=== PATIENT | female | born 1985 | race African-American/Black ===

== ENCOUNTER 2016-07-02 11:11 | Day surgery (SDC) | payer BC, OTHER ==
[2016-07-01 11:28] VITALS: BMI 34.0
[~2016-07-02] VITALS: Ht 165.1 cm; Wt 92.7 kg
[~2016-07-02 11:11] MED LIST: ATROPINE SULFATE 0.1 MG/ML 5ML SYR IV PRN; EpHEDrine SULFATE INJ 50 MG/ML AMP IV PRN; HYDROmorphone INJ 1 MG/ML SYR IV PRN; LABETALOL HCL IV 5 MG/ML 20ML IV PRN; LACTATED RINGER'S 1000ML 1,000 ML IV SCH; MEPERIDINE HCL 25 MG/ML CARP IV PRN; ONDANSETRON INJ 2 MG/ML 2 ML VIAL IV PRN
[2016-07-02 11:30] VITALS: BP 121/64; PULSE 82; TEMP 37.6; O2SAT 100; Ht 165.1 cm; Wt 92.7 kg
[2016-07-02] MEDS ORDERED: PRENTAB26 PO (11:42)
[2016-07-02 12:12] LABS: HEMATOCRIT 39.8 % (37-47); MEAN CELL VOLUME 80.1 fL (80-100); MEAN CORPUSCULAR HEMOGLOBIN 27.6 pg (25-34); MEAN CORPUSCULAR HGB CONC 34.4 g/dl (32-36); RED BLOOD COUNT 4.97 M/uL (4.2-5.4); WHITE BLOOD COUNT 6.57 K/uL (4.8-10.8)
[2016-07-02 12:14] LABS: PLATELET COUNT 74 K/uL (130-400)
[2016-07-02 12:15] LABS: BASO % 0.5 %; BASO ABS # 0.03 K/uL (0-0.2); COMPLETE YES; EOS % 1.7 %; IG% 0.2 %; LYMPH % 38.7 %; LYMPH ABS # 2.54 K/uL (1.2-3.4); MONO % 5.6 %; NEUT % 53.3 %; PLT ESTIMATE DECREASED
[2016-07-02] MEDS ORDERED: FENTANYL CITRATE INJ 50 MCG/1 ML 2 ML VIAL ONE ×2 (12:22→14:05)
[2016-07-02] MEDS ORDERED: MIDAZOLAM HCL 1 MG/ML 2ML VIAL ONE (12:22)
[2016-07-02] MEDS ORDERED: PROPOFOL IV EMULSION 10 MG/ML 20 ML VIAL IV ONE (12:22)
[2016-07-02] MEDS ORDERED: LIDOCAINE HCL 2% 2 ML VIAL (20MG/ML) ONE (12:22)
--- NOTE | 2016-07-02 13:22 | History & Physical Bridge Note ---
H&P Re-Evaluation Bridge Note: I have examined the patient, reviewed the History & Physical and in the interval since the performance of the History & Physical I have noted the following changes of clinical significance: No changes noted
[2016-07-02] MEDS: FENTANYL CITRATE INJ 50 MCG/1 ML 2 ML VIAL IV PRN ×2 (13:27→14:32)
[2016-07-02] MEDS ORDERED: ONDANSETRON INJ 2 MG/ML 2 ML VIAL ONE (13:59)
[2016-07-02] MEDS ORDERED: DEXAMETHASONE SOD INJ 4 MG/ML VIAL ONE (13:59)
[2016-07-02] MEDS ORDERED: KETOROLAC TROMETHAMINE 30 MG/ML VIAL ONE (13:59)
[2016-07-02] MEDS ORDERED: CLINDAMYCIN PHOS 150 MG/ML 2 ML VIAL ONE (13:59)
[2016-07-02] MEDS ORDERED: OXYC-57 PO (14:13)
[2016-07-02] MEDS ORDERED: IBUP600T44 PO (14:13)
--- NOTE | 2016-07-02 14:15 | Discharge Instructions ---
Discharge Instructions Visit Reason for Visit: Missed Discharge Discharge Diagnosis / Problem: Dilation and evacuation, missed Discharge Goals Goal(s): Decrease discomfort Activity Recommendations Activity Limitations: per Instructions/Follow-up section Anesthesia . Post Anesthesia Instructions: If you have had General Anesthesia or IV Sedation: * Do not drive today. * Resume driving when surgeon permits. * Do not make important decisions or sign legal documents today. * Call surgeon for: 1. Temperature elevations greater than 101 degrees F. 2. Uncontrollable pain. 3. Excessive bleeding. 4. Persistent nausea and vomiting. 5. Medication intolerance (nausea, vomiting or rash). * For nausea and vomiting use only clear liquids such as: tea, soda, bouillon until nausea subsides, then gradually increase diet as tolerated. * If you have any concerns or questions, call your surgeon's office. If physician is unavailable and it is an emergency, call 911 or go to the nearest emergency room. . Instructions / Follow-Up Instructions / Follow-Up ACTIVITY RECOMMENDATIONS: * Avoid tampons, douching, hot tubs, pools, and intercourse until bleeding has stopped. * May shower as usual. * No strenuous activity for 24-48 hours. After 24-48 hours, you may do anything you feel like doing (driving and sports are okay). SPECIAL CARE INSTRUCTIONS: Special Diet: * Mild nausea may occur in the immediate post-operative period. * Take clear liquids such as tea, cola or bouillon until all nausea has subsided; you may then resume your normal diet. Special Care: * Light bleeding and vaginal spotting can last from a few days to 3-4 weeks. Call your doctor if bleeding becomes heavier than the heaviest part of your period. * Check your temperature twice a day for one week. If it goes above 100.4 degrees Fahrenheit (38.0 Celsius), notify your doctor. * Call your doctor's office for an appointment after your surgery if not already scheduled FOLLOW-UP VISIT: Call your doctor's office for an appointment after your surgery. Diet Recommendations Recommended Home Diet: no limitations, resume previous diet Pending Studies Studies pending at discharge: no Medical Emergencies . Who to Call and When: Medical Emergencies: If at any time you feel your situation is an emergency, please call 911 immediately. . Non-Emergent Contact Non-Emergency issues call your: Primary Care Provider, Electrician Telephone Call Non-Emergent contact if: you have a fever . . "Provider Documentation" section prepared by Bala Nolan. [facility] Monitoring Program Search Results: patient reviewed within database, no issues identified
--- NOTE | 2016-07-02 14:19 | [facility] Post Operative Brief Note ---
Immediate Operative Summary Operative Date Jul 02, 2016. Pre-Operative Diagnosis First Trimester Missed Post-Operative Diagnosis Same Procedure(s) Performed Suction Dilation and Evacuation Surgeon Dr. Nolan Bilingual Spanish Inbound Sales Surgeon(s) None Estimated Blood Loss 200 Findings On Bimanual exam uterus was at midline and freely mobile. Cervix was dilated with hegar dilators. Using a size 10 suction curette the entire contents of the uterine cavity was evacuated and sent to pathology. Using a large sharp curette a thorough curettage of the cavity was performed obtaining minimal amount of tissue and blood. Excellent hemostasis noted at the completion of the procedure. Patient tolerated the procedure well and was sent to recovery with stable vital signs. Fluids (cc crystalloids) 700 Specimens Products of Conception Drains None Anesthesia General Complication(s) None Disposition Recovery Room / PACU
--- NOTE | 2016-07-02 14:55 | OPERATIVE REPORT ---
DATE OF OPERATION: 07/02/2016 PREOPERATIVE DIAGNOSIS: First trimester missed . POSTOPERATIVE DIAGNOSES: Same. OPERATIVE PROCEDURE: Suction, dilation and evacuation. SURGEON: Dr. Nolan. COMMUNITY SPORTS COORDINATOR: None. ANESTHESIA: General. ESTIMATED BLOOD LOSS: 200 mL. IV FLUIDS: 700 mL crystalloids. URINE OUTPUT: 100 mL clear, yellow urine. SPECIMENS: Products of conception to pathology. DRAINS: None. COMPLICATIONS: None. OPERATIVE FINDINGS: On bimanual exam, uterus was at midline and freely mobile. Cervix was dilated with Hegar dilators using a size 10 suction curette. The entire contents of the uterine cavity was evacuated and sent to pathology. Using a large sharp curette a thorough curettage of the cavity was performed obtaining a minimal amount of tissue and blood. Excellent hemostasis was noted at the completion of the procedure. The patient tolerated the procedure well and was sent to recovery with stable vital signs. OPERATIVE PROCEDURE IN DETAIL: The patient was taken to the operating room where general anesthesia was administered. Once anesthesia was found to be adequate, the patient was placed in the dorsal lithotomy position, was prepped and draped in a manner appropriate for the procedure. A bimanual examination was then performed. A weighted speculum was then placed into the vagina and the anterior lip of the cervix was grasped with a single-tooth tenaculum. The cervix was then dilated using Hannah dilators. A size 10 suction curette was introduced into the uterine cavity and the entire contents were evacuated under suction. The suction curette was then removed and utilizing a large Calhoun curette a thorough curettage of the cavity was performed, noting no further tissue. At this point, the procedure was found to be complete. All instruments were removed from the vagina. Excellent hemostasis was noted. All sponge and instrument counts were found to be correct x2. The patient tolerated the procedure well and was sent to recovery with stable vital signs. I attest to the content of the Intraoperative Record and any orders documented therein. Any exceptio ns are noted below.
[2016-07-02 15:10] VITALS: BP 109/60; PULSE 72; TEMP 36.9; O2SAT 97
[2016-07-02 15:55] VITALS: BP 101/60; PULSE 64; TEMP 36.9; O2SAT 97
--- NOTE | 2016-07-02 16:04 | Anesthesiology Progress Note ---
Anesthesia Post Op Note Date & Time Jul 02, 2016 at 16:04 Vital Signs Pain Intensity: 1 Vital Signs Past 12 Hours Date Time Temp Pulse Resp B/P Pulse Ox O2 Delivery O2 Flow Rate FiO2 07/02/16 14:56 36.5 07/02/16 14:53 111/69 07/02/16 14:50 86 23 92 07/02/16 14:50 87 23 07/02/16 14:48 112/63 07/02/16 14:45 86 15 07/02/16 14:45 85 15 93 07/02/16 14:43 104/66 07/02/16 14:40 89 07/02/16 14:40 Room Air 07/02/16 14:40 89 20 93 07/02/16 14:38 113/68 07/02/16 14:35 92 20 94 07/02/16 14:35 93 07/02/16 14:33 118/71 07/02/16 14:30 92 20 100 07/02/16 14:30 91 20 07/02/16 14:28 112/68 07/02/16 14:25 92 07/02/16 14:25 91 20 100 07/02/16 14:23 113/65 07/02/16 14:21 119/66 07/02/16 14:20 36.8 93 16 119/66 100 Mask 10 07/02/16 14:20 95 07/02/16 14:20 95 20 100 07/02/16 11:30 37.6 82 18 121/64 100 Room Air Notes Mental Status: alert / awake / arousable, participated in evaluation Pt Amnestic to Procedure: Yes Nausea / Vomiting: adequately controlled Pain: adequately controlled Airway Patency, RR, SpO2: stable & adequate BP & HR: stable & adequate Hydration State: stable & adequate Anesthetic Complications: no major complications apparent
[2016-07-02] MEDS ORDERED: OXYCODONE/ACETAMINOPHEN 5-325 TAB ONE (16:29)
[2016-07-02] MEDS ORDERED: NURSING VERBAL MED ORDER ONE (16:30)
[2016-07-02 16:45] VITALS: BP 100/58; PULSE 81; TEMP 36.8; O2SAT 100
== END 2016-07-02 16:50 | disposition home or self-care (01) ==
LOC: C.ACU 11:11
PROVIDERS: ATTEND Obstetrics & Gynecology
DX: O02.1 Missed abortion (principal); J45.909 Unspecified asthma, uncomplicated; E66.9 Obesity, unspecified; Z68.35 Body mass index [BMI] 35.0-35.9, adult; F17.200 Nicotine dependence, unspecified, uncomplicated; Z90.49 Acquired absence of other specified parts of digestive tract

== ENCOUNTER → 2016-11-16 | Outpatient (CLI) | payer BC, OTHER ==
[~2016-11-16] MED LIST changes: -ATROPINE SULFATE 0.1 MG/ML 5ML SYR IV PRN; -EpHEDrine SULFATE INJ 50 MG/ML AMP IV PRN; -HYDROmorphone INJ 1 MG/ML SYR IV PRN; +IBUP600T44 PO; -LABETALOL HCL IV 5 MG/ML 20ML IV PRN; -LACTATED RINGER'S 1000ML 1,000 ML IV SCH; -MEPERIDINE HCL 25 MG/ML CARP IV PRN; +METO-157 PO; +ONDA4TAB46 PO; -ONDANSETRON INJ 2 MG/ML 2 ML VIAL IV PRN; +OXYC-57 PO; +PRED20TA PO; +PRED20TA2 PO; +PRENTAB26 PO
[2016-11-16 17:42] LABS: ALT/SGPT 42 U/L (12-78); AST/SGOT 21 U/L (15-37); BLOOD UREA NITROGEN 9 mg/dl (7-18); BUN/CREATININE RATIO 9.9 (10-20); CALCIUM 8.2 mg/dl (8.5-10.1); CARBON DIOXIDE 26 mmol/L (21-32); CHLORIDE 107 mmol/L (98-107); CREATININE 0.87 mg/dl (0.60-1.20); GLUCOSE 110 mg/dl (70-99); POTASSIUM 3.6 mmol/L (3.5-5.1); SODIUM 141 mmol/L (136-145)
[2016-11-16 17:46] LABS: URINE APPEARANCE CLEAR (CLEAR); URINE BILIRUBIN NEG (NEG); URINE COLOR DK YELLOW; URINE EPITHELIAL CELL AUTO >30 /lpf (0-5); URINE NITRITE NEG (NEG); URINE PH 7.5 (4.5-7.5); URINE SPECIFIC GRAVITY 1.032 (1.000-1.030); UROBILINOGEN NEG (NEG); ZZUR CULT IF INDIC CLEAN CATCH NO
[2016-11-16 17:48] LABS: MANUAL MICROSCOPIC REQUIRED? NO; REVIEW REQ? NO
[2016-11-16 17:53] LABS: ALKALINE PHOSPHATASE 98 U/L (45-117)
== END | disposition home or self-care (01) ==
LOC: C.LABBFT 10:19
PROVIDERS: ATTEND Physician Assistant Medical
DX: R61 Generalized hyperhidrosis (principal)

== ENCOUNTER → 2016-11-18 | Outpatient (CLI) | payer BC, OTHER | END | disposition home or self-care (01) | LOC: C.LABSPEC 17:01 | PROVIDERS: ATTEND Podiatrist Foot & Ankle Surgery | DX: B35.1 Tinea unguium (principal) ==

== ENCOUNTER 2017-01-22 22:15 | Emergency (ER) | payer OTHER ==
[~2017-01-22] VITALS: Ht 165.1 cm; Wt 93.3 kg
[~2017-01-22 22:15] MED LIST changes: -IBUP600T44 PO; -METO-157 PO; -ONDA4TAB46 PO; -OXYC-57 PO; -PRED20TA PO; -PRED20TA2 PO
[2017-01-22 22:27] VITALS: TEMP 36.7; Ht 165.1 cm; Wt 93.3 kg
[2017-01-22] MEDS ORDERED: SODIUM CHLORIDE 0.9% 1000ML 2,000 ML IV STA (22:45)
[2017-01-22] MEDS ORDERED: METOCLOPRAMIDE HCL INJ 5 MG/ML 2 ML VIAL IV STA (22:45)
[2017-01-22] MEDS ORDERED: DiphenhydrAMINE HCL 50 MG/ML VIAL IV STA (22:45)
[2017-01-22] MEDS ORDERED: ONDA4TAB46 PO (22:55)
[2017-01-22 23:30] LABS: BUN/CREATININE RATIO 9.2 (10-20); CALCIUM 8.7 mg/dl (8.5-10.1); CREATININE 0.71 mg/dl (0.60-1.20); POTASSIUM 3.7 mmol/L (3.5-5.1)
[2017-01-22 23:38] LABS: HEMATOCRIT 40.7 % (37-47); MEAN CELL VOLUME 78.1 fL (80-100); MEAN CORPUSCULAR HEMOGLOBIN 26.7 pg (25-34); MEAN CORPUSCULAR HGB CONC 34.2 g/dl (32-36); PLATELET COUNT 32 K/uL (130-400); RED BLOOD COUNT 5.21 M/uL (4.2-5.4); WHITE BLOOD COUNT 5.93 K/uL (4.8-10.8)
[2017-01-22 23:41] LABS: BASO % 0.2 %; BASO ABS # 0.01 K/uL (0-0.2); COMPLETE YES; EOS % 1.2 %; IG% 0.2 %; LARGE PLATELETS 3+; LYMPH % 37.3 %; LYMPH ABS # 2.21 K/uL (1.2-3.4); MONO % 7.9 %; NEUT % 53.2 %; PLT ESTIMATE DECREASED
[2017-01-23 00:20] LABS: URINE APPEARANCE CLOUDY (CLEAR); URINE COLOR DK YELLOW; URINE EPITHELIAL CELL AUTO >30 /lpf (0-5); URINE NITRITE NEG (NEG); URINE SPECIFIC GRAVITY 1.027 (1.000-1.030); UROBILINOGEN POS (NEG); ZZUR CULT IF INDIC CLEAN CATCH YES
[2017-01-23 00:26] LABS: MANUAL MICROSCOPIC REQUIRED? NO; REVIEW REQ? NO; URINE BILIRUBIN NEG (NEG)
[2017-01-23] MEDS ORDERED: METO-157 PO (00:42)
[2017-01-23] MEDS ORDERED: METOCLOPRAMIDE HCL 10 MG TAB PO ONE (00:45)
[2017-01-23] MEDS ORDERED: EMPTY 8 DRAM VIAL ONE (00:50)
[2017-01-23 00:55] VITALS: BP 106/64; PULSE 75; O2SAT 100
--- NOTE | 2017-01-23 06:24 | EMERGENCY ROOM VISIT NOTE ---
History First contact with patient: 22:35 Chief Complaint: VOMITING Stated Complaint: VOMITING,DEHYDRATION, 12 WEEKS Nursing Triage Summary: Pt reports vomiting since 1800. Pt reports 11 wks . Unable to keep water, gatorade or anything down. History of Present Illness The patient is a 31 year old female who presents to the Emergency Room with complaints of nausea and vomiting who is currently 12 weeks and follows at [facility]. This is her third . Patient states she's had horrible morning sickness with this . She had an ultrasound a few weeks ago that showed a viable IUP. Patient denies abdominal pain, vaginal bleeding, vaginal pain, urinary symptoms, fever, chills, diarrhea. Patient has ITP. Her platelet count runs between 30,000 - 70,000. She follows with Dr. Tate. Patient's been taking Zofran at home with and is not helping with the vomiting. Review of Systems See HPI for pertinent positives & negatives. A total of 10 systems reviewed and were otherwise negative. Past Medical/Surgical History ITP Social History Smoking Status: Current Every Day Smoker Alcohol Use: none Drug Use: none Marital Status: Housing Status: lives with family Occupation Status: employed Current/Historical Medications Scheduled Metoclopramide (Reglan), 10 MG PO Q6H Multivit/Min/Iron/Fol Ac/Pren ( Vitamin), 1 TAB PO DAILY Scheduled PRN Ondansetron Hcl (Zofran), 4 MG PO Q4 PRN for Nausea Physical Exam Vital Signs Date Time Temp Pulse Resp B/P (MAP) Pulse Ox O2 Delivery O2 Flow Rate FiO2 01/23/17 00:55 75 106/64 100 01/22/17 22:27 36.7 89 19 110/75 99 Room Air Pain Rating (0-10): 0 Physical Exam VITALS: Vitals are noted on the nurse's note and reviewed by myself. Vital signs stable. GENERAL: Pleasant female, in no acute distress, nondiaphoretic, well-developed well-nourished. SKIN: The skin was without rashes, erythema, edema, or bruising. There is no tenting of the skin. Capillary reflex less than 2 seconds. HEAD: Normocephalic atraumatic. EARS: External auditory canals clear, tympanic membranes pearly lama without erythema or effusion bilaterally. EYES: Pupils equal round and reactive to light and accommodation. Conjunctivae without injection, sclerae without icterus. Extraocular movements intact. NOSE: Patent, turbinates without inflammation or discharge. MOUTH: Mucous membranes moist. Pharynx without erythema or exudate. Uvula midline. Airway patent. Tongue does not deviate. NECK: Supple without nuchal rigidity. No lymphadenopathy. No thyromegaly. Cervical spine is nontender. No JVD. HEART: Regular rate and rhythm without murmurs gallops or rubs. LUNGS: Clear to auscultation bilaterally without wheezes, rales or rhonchi. No dullness to percussion. No retractions or accessory muscle use. ABDOMEN: Positive bowel sounds x 4. Normal tympanic percussion. Soft, 12 weeks , no CVA tenderness, nontender, without masses or organomegaly. Dinero sign negative. No guarding or rebound tenderness. MUSCULOSKELETAL: No muscle atrophy, erythema, or edema noted. NEURO: Patient was alert and oriented to person place and time. Normal sensation to light and sharp touch. No focal neurological deficits. Medical Decision & Procedures Laboratory Results 01/22/17 23:00 Red Blood Count 5.21, Mean Corpuscular Volume 78.1, Mean Corpuscular Hemoglobin 26.7, Mean Corpuscular Hemoglobin Concent 34.2, Neutrophils (%) (Auto) 53.2, Lymphocytes (%) (Auto) 37.3, Monocytes (%) (Auto) 7.9, Eosinophils (%) (Auto) 1.2, Basophils (%) (Auto) 0.2, Neutrophils # (Auto) 3.16, Lymphocytes # (Auto) 2.21, Monocytes # (Auto) 0.47, Eosinophils # (Auto) 0.07, Basophils # (Auto) 0.01 01/22/17 23:00 Test 01/22/17 23:00 01/22/17 23:50 White Blood Count 5.93 K/uL (4.8-10.8) Red Blood Count 5.21 M/uL (4.2-5.4) Hemoglobin 13.9 g/dL (12.0-16.0) Hematocrit 40.7 % (37-47) Mean Corpuscular Volume 78.1 fL (80-100) Mean Corpuscular Hemoglobin 26.7 pg (25-34) Mean Corpuscular Hemoglobin Concent 34.2 g/dl (32-36) Platelet Count 32 K/uL (130-400) Neutrophils (%) (Auto) 53.2 % Lymphocytes (%) (Auto) 37.3 % Monocytes (%) (Auto) 7.9 % Eosinophils (%) (Auto) 1.2 % Basophils (%) (Auto) 0.2 % Neutrophils # (Auto) 3.16 K/uL (1.4-6.5) Lymphocytes # (Auto) 2.21 K/uL (1.2-3.4) Monocytes # (Auto) 0.47 K/uL (0.11-0.59) Eosinophils # (Auto) 0.07 K/uL (0-0.5) Basophils # (Auto) 0.01 K/uL (0-0.2) RDW Standard Deviation 36.9 fL (36.4-46.3) RDW Coefficient of Variation 13.0 % (11.5-14.5) Immature Granulocyte % (Auto) 0.2 % Immature Granulocyte # (Auto) 0.01 K/uL (0.00-0.02) Platelet Estimate DECREASED Large Platelets 3+ Anion Gap 7.0 mmol/L (3-11) Est Creatinine Clear Calc Drug Dose 127.2 ml/min Estimated GFR () 129.7 Estimated GFR (Non- 111.9 BUN/Creatinine Ratio 9.2 (10-20) Calcium Level 8.7 mg/dl (8.5-10.1) Urine Color DK YELLOW Urine Appearance CLOUDY (CLEAR) Urine pH 7.0 (4.5-7.5) Urine Specific [place] 1.027 (1.000-1.030) Urine Protein TRACE (NEG) Urine Glucose (UA) NEG (NEG) Urine Ketones TRACE (NEG) Urine Occult Blood NEG (NEG) Urine Nitrite NEG (NEG) Urine Bilirubin NEG (NEG) Urine Urobilinogen POS (NEG) Urine Leukocyte Esterase NEG (NEG) Urine WBC (Auto) 1-5 /hpf (0-5) Urine RBC (Auto) 0-4 /hpf (0-4) Urine Hyaline Casts (Auto) 5-10 /lpf (0-5) Urine Epithelial Cells (Auto) >30 /lpf (0-5) Urine Bacteria (Auto) 1+ (NEG) Medications Administered Medications (Trade) Dose Ordered Sig/[place] Route Start Time Stop Time Status Last Admin Dose Admin Sodium Chloride 2,000 ml @ 999 mls/hr Q2H1M STAT IV 01/22/17 22:45 01/23/17 00:45 DC 01/22/17 23:54 999 MLS/HR Metoclopramide HCl (Reglan Inj) 10 mg NOW STAT IV 01/22/17 22:45 01/22/17 22:47 DC 01/22/17 23:52 10 MG Diphenhydramine HCl (Benadryl Inj) 12.5 mg NOW STAT IV 01/22/17 22:45 01/22/17 22:47 DC 01/22/17 23:53 12.5 MG ED Course Prior records/ancillary studies reviewed. Triage Nursing notes reviewed. Additional history obtained from the family. The patient's history was concerning for nausea, vomiting, he was 12 weeks Differential diagnosis: Etiologies such as hyperemesis gravidarum, gastroenteritis, food borne illness, infections, appendicitis, diverticulitis, inflammatory bowel disease, obstruction, GI bleed, biliary pathology, as well as others were entertained. Physical examination findings: As above. Abdominal examination revealed no tenderness. Vital signs reviewed and revealed stable. ER treatment provided: IV hydration 2 L NSS. Reglan, Benadryl On reassessment the patient felt better. Patient was tolerating p.o. intake. Diagnostics interpretation by me: The labs revealed thrombocytopenia. Slightly higher than recent CBC. Minimal protein in the urine. heart tones 160 per nursing This appears to be consistent with hyperemesis gravidarum. Patient is known ITP. She is advised to follow-up with her counter attendant for this. She had no signs of purpura, petechiae or bleeding on clinical exam. Stable H&H. Patient was advised to take B-6 tablet daily along with having pooaj and peppermint to help control the morning sickness. She is given a short supply Reglan. She has Zofran at home. She is advised to follow-up with her OB in a few days or here in the ER sooner for fevers, vomiting, pain, worsening signs or symptoms or as needed. Patient did not have acute abdomen on exam. She is well- appearing. Normal heart tones. By the evaluation outlined above emergent etiologies such as appendicitis, diverticulitis, obstruction, cardiac sources, mesenteric ischemia, aortic pathology, inflammatory bowel disease, renal colic, PUD, biliary pathology, UTI, as well as others were deemed relatively unlikely. The pt informed about the findings as listed above. All questions were answered and pleased with the treatment. Return instructions were outlined and the patient was discharged in stable condition. Outpatient prescription management: reglan Referral: The patient was referred to their FISH TECHNOLOGIST and counter attendant for follow-up in 2 to 3 days for a recheck of the current condition. Case reviewed with my attending Medical Decision As above Medication Reconcilliation Current Medication List: was personally reviewed by me Blood Pressure Screening Patient's blood pressure: Normal blood pressure Impression Primary Impression: Hyperemesis gravidarum Departure Information Dispostion Home / Self-Care Condition GOOD Prescriptions Metoclopramide (Reglan) 10 Mg Tab 10 MG PO Q6H, #10 TAB NAUSEA Prov: Brandie Buchanan .ANNY 01/23/17 Forms HOME CARE DOCUMENTATION FORM, IMPORTANT VISIT INFORMATION Patient Instructions Mee, [facility] Additional Instructions Recommend taking a B-6 tablet daily. Recommend try pooja and peppermint for morning sickness. DO NOT drive, drink alcohol, operate machinery, or perform dangerous activities today. You were given medications in the ER that can affect your ability to safely function or operate a vehicle. Reglan(metoclopramide) tablets 10mg: Take one every six hours as needed for nausea. Avoid alcohol, operating machinery or dangerous equipment, working on ladders or roofs, DRIVING, or situations where being under the influence may be dangerous. Acetaminophen(Tylenol) may be used for fever or pain. Use 1000mg every six hours as needed. Avoid using more than 3000mg in a 24 hour period. Rest and drink plenty of fluids as tolerated. Slow sips of water or sports drinks are recommended instead of large amounts all at once. Continue current medications. Small meals throughout the day. Return to the ER for persistent vomiting, fevers, abdominal pain, chest pains, difficulty breathing, black or bloody stools, worsening of your condition, or as needed. Follow up with your primary physician in 2-3 days for a recheck of your current condition and for further workup for protein seen any urine and recheck of your platelets. Your platelets today were 32,000..
== END 2017-01-23 00:55 | disposition home or self-care (01) ==
LOC: C.EDB 22:17 → C.EDC 01-23 00:55
DX: O21.0 Mild hyperemesis gravidarum (principal); O99.111 Other diseases of the blood and blood-forming organs and certain disorders involving the immune mechanism complicating pregnancy, first trimester; D69.3 Immune thrombocytopenic purpura; O99.330 Smoking (tobacco) complicating pregnancy, unspecified trimester; F17.210 Nicotine dependence, cigarettes, uncomplicated; Z3A.12 12 weeks gestation of pregnancy

== ENCOUNTER → 2017-02-18 | Outpatient (CLI) | payer OTHER ==
[~2017-02-18] VITALS: Ht 164.5 cm; Wt 93.5 kg
[~2017-02-18] MED LIST changes: +METO-157 PO; +ONDA4TAB46 PO
[2017-02-18 14:40] VITALS: BP 126/77; PULSE 88; Ht 164.5 cm; Wt 93.5 kg
== END | disposition home or self-care (01) ==
LOC: C.NEUR 14:00
PROVIDERS: ATTEND Internal Medicine Pulmonary Disease
DX: R06.83 Snoring (principal); R61 Generalized hyperhidrosis; G47.61 Periodic limb movement disorder; D69.6 Thrombocytopenia, unspecified

== ENCOUNTER → 2017-02-23 | Outpatient (CLI) | payer OTHER | END | disposition home or self-care (01) | LOC: C.LAB 14:09 | PROVIDERS: ATTEND Internal Medicine Pulmonary Disease | DX: R06.83 Snoring (principal); G47.61 Periodic limb movement disorder; R61 Generalized hyperhidrosis; D69.6 Thrombocytopenia, unspecified ==

== ENCOUNTER 2017-04-25 09:17 | Outpatient (CLI) | payer OTHER ==
[~2017-04-25] VITALS: Ht 165.1 cm; Wt 94.5 kg
[2017-04-25] MEDS ORDERED: PRED20TA2 PO (10:09)
[2017-04-25] MEDS ORDERED: PRED20TA PO (10:10)
[2017-04-25 10:11] VITALS: Ht 165.1 cm; Wt 94.5 kg
[2017-04-25 10:28] LABS: MEAN CORPUSCULAR HGB CONC 34.9 g/dl (32-36)
[2017-04-25 10:31] LABS: HEMATOCRIT 37.5 % (37-47); MEAN CELL VOLUME 80.8 fL (80-100); MEAN CORPUSCULAR HEMOGLOBIN 28.2 pg (25-34); RED BLOOD COUNT 4.64 M/uL (4.2-5.4); WHITE BLOOD COUNT 13.84 K/uL (4.8-10.8)
[2017-04-25 10:56] LABS: ALT/SGPT 16 U/L (12-78); BLOOD UREA NITROGEN 10 mg/dl (7-18); BUN/CREATININE RATIO 22.6 (10-20); CALCIUM 8.7 mg/dl (8.5-10.1); CARBON DIOXIDE 21 mmol/L (21-32); CHLORIDE 107 mmol/L (98-107); CREATININE 0.46 mg/dl (0.60-1.20); GLUCOSE 86 mg/dl (70-99); POTASSIUM 3.7 mmol/L (3.5-5.1); SODIUM 140 mmol/L (136-145)
[2017-04-25 10:59] LABS: ALB/GLOB RATIO 0.8 (0.9-2); ALKALINE PHOSPHATASE 91 U/L (45-117); AST/SGOT 8 U/L (15-37)
[2017-04-25 11:04] LABS: PLATELET COUNT 64 K/uL (130-400)
[2017-04-25 11:07] LABS: BASO % 0.1 %; BASO ABS # 0.01 K/uL (0-0.2); COMPLETE YES; EOS % 0.7 %; GIANT PLATELETS 1+; IG% 1.7 %; LYMPH % 33.4 %; LYMPH ABS # 4.62 K/uL (1.2-3.4); MONO % 7.7 %; NEUT % 56.4 %; PLT ESTIMATE DECREASED
[2017-04-25 11:12] LABS: INR 0.9 (0.9-1.1); PARTIAL THROMBOPLASTIN RATIO 1.1; PROTHROMBIN TIME (PATIENT) 9.4 SECONDS (9.0-12.0)
[2017-04-25 11:44] LABS: URINE APPEARANCE CLOUDY (CLEAR); URINE BILIRUBIN NEG (NEG); URINE COLOR YELLOW; URINE NITRITE NEG (NEG); URINE SPECIFIC GRAVITY 1.017 (1.000-1.030); UROBILINOGEN NEG (NEG); ZZUR CULT IF INDIC CLEAN CATCH NO
[2017-04-25 11:48] LABS: MANUAL MICROSCOPIC REQUIRED? NO; REVIEW REQ? NO
== END 2017-04-25 17:07 | disposition home or self-care (01) ==
LOC: C.LD 09:17 → C.OPB 09:17
PROVIDERS: ATTEND Obstetrics & Gynecology
DX: O26.852 Spotting complicating pregnancy, second trimester (principal); O44.42 Low lying placenta NOS or without hemorrhage, second trimester; O99.212 Obesity complicating pregnancy, second trimester; E66.9 Obesity, unspecified; O24.410 Gestational diabetes mellitus in pregnancy, diet controlled; O99.332 Smoking (tobacco) complicating pregnancy, second trimester; F17.200 Nicotine dependence, unspecified, uncomplicated; Z3A.25 25 weeks gestation of pregnancy; Z79.52 Long term (current) use of systemic steroids

== ENCOUNTER 2017-06-13 03:12 | Emergency (ER) | payer OTHER ==
[~2017-06-13] VITALS: Ht 165.1 cm; Wt 92.1 kg
[~2017-06-13 03:12] MED LIST changes: +PRED20TA PO
[2017-06-13 03:20] VITALS: TEMP 37.3; Ht 165.1 cm; Wt 92.1 kg
[2017-06-13] MEDS ORDERED: ONDANSETRON INJ 2 MG/ML 2 ML VIAL IV STA (03:41)
[2017-06-13] MEDS ORDERED: SODIUM CHLORIDE 0.9% 1000ML 2,000 ML IV STA (03:41)
[2017-06-13 04:10] LABS: MEAN CORPUSCULAR HGB CONC 35.1 g/dl (32-36)
[2017-06-13 04:24] LABS: HEMATOCRIT 45.3 % (37-47); HEMOGLOBIN 15.9 g/dL (12.0-16.0); MEAN CELL VOLUME 81.2 fL (80-100); MEAN CORPUSCULAR HEMOGLOBIN 28.5 pg (25-34); RED CELL DISTRIBUTION WIDTH CV 12.9 % (11.5-14.5); RED CELL DISTRIBUTION WIDTH SD 38.5 fL (36.4-46.3); WHITE BLOOD COUNT 7.37 K/uL (4.8-10.8)
[2017-06-13 04:27] LABS: ALBUMIN 3.1 gm/dl (3.4-5.0); CALCIUM 8.8 mg/dl (8.5-10.1); CREATININE 0.68 mg/dl (0.60-1.20); POTASSIUM 3.4 mmol/L (3.5-5.1)
[2017-06-13 04:30] LABS: TOTAL PROTEIN 7.4 gm/dl (6.4-8.2)
[2017-06-13 04:50] LABS: IG# 0.04 K/uL (0.00-0.02); LYMPH % 10.3 %; LYMPH ABS # 0.76 K/uL (1.2-3.4); MONO % 3.9 %; MONO ABS # 0.29 K/uL (0.11-0.59); NEUT % 85.3 %; NEUT ABS # 6.28 K/uL (1.4-6.5); PLATELET COUNT 38 K/uL (130-400)
[2017-06-13] MEDS ORDERED: ALUMINUM/MAGNESIUM SUSP 30 ML UDC PO STA (05:04)
--- NOTE | 2017-06-13 05:13 | EMERGENCY ROOM VISIT NOTE ---
History First contact with patient: 03:25 Chief Complaint: VOMITING Stated Complaint: 32 WKS PREG, VOMITING NONSTOP FOR 11 HRS History of Present Illness The patient is a 31 year old female who presents to the Emergency Room with complaints of nausea and vomiting with abdominal cramping for the past day. Patient denies chest pain, dyspnea, fever, chills, cough, Vaginal bleeding, lower abdominal cramping, congestion, back pain, urinary symptoms. She can feel the baby move. She falls at [facility]. She is a history of ITP and platelets were 37,000 on May 23., Review of Systems See HPI for pertinent positives & negatives. A total of 10 systems reviewed and were otherwise negative. Past Medical/Surgical History Medical Problems: (1) Vaginal bleeding in Social History Smoking Status: Current Every Day Smoker Alcohol Use: none Drug Use: none Marital Status: Housing Status: lives with family Occupation Status: employed Current/Historical Medications Scheduled Metoclopramide (Reglan), 10 MG PO Q6H Multivit/Min/Iron/Fol Ac/Pren ( Vitamin), 1 TAB PO DAILY Prednisone (Prednisone), 0 PO DAILY Scheduled PRN Ondansetron Hcl (Zofran), 4 MG PO Q4 PRN for Nausea Physical Exam Vital Signs Date Time Temp Pulse Resp B/P (MAP) Pulse Ox O2 Delivery O2 Flow Rate FiO2 06/13/17 04:03 Room Air 06/13/17 03:20 37.3 110 18 118/63 97 Room Air Physical Exam VITALS: Vitals are noted on the nurse's note and reviewed by myself. Vital signs stable. GENERAL: Pleasant female vomiting, in no acute distress, nondiaphoretic, well- developed well-nourished. SKIN: The skin was without rashes, erythema, edema, or bruising. There is no tenting of the skin. Capillary reflex less than 2 seconds. HEAD: Normocephalic atraumatic. EARS: External auditory canals clear, tympanic membranes pearly lama without erythema or effusion bilaterally. EYES: Pupils equal round and reactive to light and accommodation. Conjunctivae without injection, sclerae without icterus. Extraocular movements intact. NOSE: Patent, turbinates without inflammation or discharge. MOUTH: Mucous membranes dry. Pharynx without erythema or exudate. Uvula midline. Airway patent. Tongue does not deviate. NECK: Supple without nuchal rigidity. No lymphadenopathy. No thyromegaly. Cervical spine is nontender. No JVD. HEART: Regular rate and rhythm without murmurs gallops or rubs. LUNGS: Clear to auscultation bilaterally without wheezes, rales or rhonchi. No dullness to percussion. No retractions or accessory muscle use. ABDOMEN: Positive bowel sounds x 4. Normal tympanic percussion. Soft, nontender, 32 weeks , no CVA tenderness. Dinero sign negative. No guarding or rebound tenderness. MUSCULOSKELETAL: No muscle atrophy, erythema, or edema noted. NEURO: Patient was alert and oriented to person place and time. Normal sensation to light and sharp touch. No focal neurological deficits. Medical Decision & Procedures Laboratory Results 06/13/17 04:00 Red Blood Count 5.58, Mean Corpuscular Volume 81.2, Mean Corpuscular Hemoglobin 28.5, Mean Corpuscular Hemoglobin Concent 35.1, Neutrophils (%) (Auto) 85.3, Lymphocytes (%) (Auto) 10.3, Monocytes (%) (Auto) 3.9, Eosinophils (%) (Auto) 0.0, Basophils (%) (Auto) 0.0, Neutrophils # (Auto) 6.28, Lymphocytes # (Auto) 0.76, Monocytes # (Auto) 0.29, Eosinophils # (Auto) 0.00, Basophils # (Auto) 0.00 06/13/17 04:00 Test 06/13/17 04:00 White Blood Count 7.37 K/uL (4.8-10.8) Red Blood Count 5.58 M/uL (4.2-5.4) Hemoglobin 15.9 g/dL (12.0-16.0) Hematocrit 45.3 % (37-47) Mean Corpuscular Volume 81.2 fL (80-100) Mean Corpuscular Hemoglobin 28.5 pg (25-34) Mean Corpuscular Hemoglobin Concent 35.1 g/dl (32-36) Platelet Count 38 K/uL (130-400) Neutrophils (%) (Auto) 85.3 % Lymphocytes (%) (Auto) 10.3 % Monocytes (%) (Auto) 3.9 % Eosinophils (%) (Auto) 0.0 % Basophils (%) (Auto) 0.0 % Neutrophils # (Auto) 6.28 K/uL (1.4-6.5) Lymphocytes # (Auto) 0.76 K/uL (1.2-3.4) Monocytes # (Auto) 0.29 K/uL (0.11-0.59) Eosinophils # (Auto) 0.00 K/uL (0-0.5) Basophils # (Auto) 0.00 K/uL (0-0.2) RDW Standard Deviation 38.5 fL (36.4-46.3) RDW Coefficient of Variation 12.9 % (11.5-14.5) Immature Granulocyte % (Auto) 0.5 % Immature Granulocyte # (Auto) 0.04 K/uL (0.00-0.02) Platelet Estimate SIGNIFIC DECREASED Large Platelets 1+ Urine Color DK YELLOW Urine Appearance CLOUDY (CLEAR) Urine pH 5.0 (4.5-7.5) Urine Specific [place] 1.026 (1.000-1.030) Urine Protein 1+ (NEG) Urine Glucose (UA) NEG (NEG) Urine Ketones 4+ (NEG) Urine Occult Blood TRACE (NEG) Urine Nitrite NEG (NEG) Urine Bilirubin NEG (NEG) Urine Urobilinogen NEG (NEG) Urine Leukocyte Esterase SMALL (NEG) Urine WBC (Auto) 10-30 /hpf (0-5) Urine RBC (Auto) 0-4 /hpf (0-4) Urine Hyaline Casts (Auto) 0 /lpf (0-5) Urine Epithelial Cells (Auto) >30 /lpf (0-5) Urine Bacteria (Auto) 2+ (NEG) Urine Renal Epithelial Cells /lpf (0-5) Urine Pathogenic Casts /lpf (0) Urine Mucus PRESENT (NONE PRSENT) Urine Yeast (Auto) (NONE PRSENT) Anion Gap 6.0 mmol/L (3-11) Est Creatinine Clear Calc Drug Dose 132.0 ml/min Estimated GFR () 133.2 Estimated GFR (Non- 114.9 BUN/Creatinine Ratio 13.4 (10-20) Calcium Level 8.8 mg/dl (8.5-10.1) Total Bilirubin 0.8 mg/dl (0.2-1) Direct Bilirubin 0.2 mg/dl (0-0.2) Aspartate Amino Transf (AST/SGOT) 13 U/L (15-37) Alanine Aminotransferase (ALT/SGPT) 17 U/L (12-78) Alkaline Phosphatase 133 U/L (45-117) Total Protein 7.4 gm/dl (6.4-8.2) Albumin 3.1 gm/dl (3.4-5.0) Lipase 139 U/L (73-393) Medications Administered Medications (Trade) Dose Ordered Sig/[place] Route Start Time Stop Time Status Last Admin Dose Admin Ondansetron HCl (Zofran Inj) 4 mg NOW STAT IV 06/13/17 03:41 06/13/17 03:43 DC 06/13/17 04:04 4 MG Sodium Chloride 2,000 ml @ 999 mls/hr Q2H1M STAT IV 06/13/17 03:41 06/13/17 05:41 06/13/17 04:04 999 MLS/HR ED Course Prior records/ancillary studies reviewed. Triage Nursing notes reviewed. Additional history obtained from the family. The patient's history was concerning for nausea, vomiting, and abdominal pain. Differential diagnosis: Etiologies such as gastroenteritis, food borne illness, infections, appendicitis , diverticulitis, inflammatory bowel disease, obstruction, GI bleed, biliary pathology, as well as others were entertained. Physical examination findings: As above. Abdominal examination revealed no tenderness. Vital signs reviewed and revealed stable. ER treatment provided: IV hydration 2 L NSS. Zofran, Maalox, by mouth fluids, crackers On reassessment the patient felt better. Patient was tolerating p.o. intake. Diagnostics interpretation by me: The labs revealed stable platelet count per chart review Urine 3+ ketones. This appears to be consistent with dehydration and vomiting. Patient felt much better after being medicated as above. heart tones are 161. She is tolerating fluids. She is eating crackers. She requested to leave. She is advised to clear liquid diet for next 2 hours and progress as tolerated to bland diet later today and to take medications as directed. She is advised to follow-up with OB in a few days or here in the ER sooner for high fevers, pain, vomiting, worsening signs or symptoms or as needed. By the evaluation outlined above emergent etiologies such as appendicitis, diverticulitis, obstruction, cardiac sources, mesenteric ischemia, aortic pathology, inflammatory bowel disease, renal colic, PUD, biliary pathology, UTI, as well as others were deemed relatively unlikely. The pt informed about the findings as listed above. All questions were answered and pleased with the treatment. Return instructions were outlined and the patient was discharged in stable condition. Outpatient prescription management: Zofran Referral: The patient was referred to their [facility] for follow-up in 2 to 3 days for a recheck of the current condition. Case reviewed by attending Medical Decision As above Medication Reconcilliation Current Medication List: was personally reviewed by me Blood Pressure Screening Patient's blood pressure: Normal blood pressure Impression Primary Impression: Vomiting Additional Impression: Dehydration Departure Information Dispostion Home / Self-Care Condition GOOD Referrals Miki Du M.D. (PCP) Patient Instructions My [facility] Additional Instructions DO NOT drive, drink alcohol, operate machinery, or perform dangerous activities today. You were given medications in the ER that can affect your ability to safely function or operate a vehicle. Zofran(odansetron) tablets 4mg: Take one and allow it to dissolve in your mouth every four to six hours as needed for nausea or vomiting. Rest and drink plenty of fluids as tolerated. Slow sips of water or sports drinks are recommended instead of large amounts all at once. Continue current medications. Once your stomach is settled start with a clear liquid diet (jello, soup broth, etc.) and then advance as tolerated. You should avoid full, heavy meals for about 24 hrs from the time your symptoms resolved. Return to the ER for persistent vomiting, fevers, abdominal pain, chest pains, difficulty breathing, black or bloody stools, worsening of your condition, or as needed. Follow up with your [facility] in 2-3 days for a recheck of your current condition. Problem Qualifiers Primary Impression: Vomiting Vomiting type: unspecified Vomiting Intractability: non-intractable Nausea presence: with nausea Qualified Codes: R11.2 - Nausea with vomiting, unspecified
[2017-06-13] MEDS ORDERED: ONDANSETRON HOME PACK 4MG OD TAB PO ONE (05:15)
[2017-06-13 05:59] VITALS: BP 125/71; PULSE 99; O2SAT 98
== END 2017-06-13 06:00 | disposition home or self-care (01) ==
LOC: C.EDB 03:13 → C.EDA 06:00
DX: O21.2 Late vomiting of pregnancy (principal); O99.283 Endocrine, nutritional and metabolic diseases complicating pregnancy, third trimester; E86.0 Dehydration; O99.113 Other diseases of the blood and blood-forming organs and certain disorders involving the immune mechanism complicating pregnancy, third trimester; D69.3 Immune thrombocytopenic purpura; O99.333 Smoking (tobacco) complicating pregnancy, third trimester; F17.200 Nicotine dependence, unspecified, uncomplicated; Z3A.32 32 weeks gestation of pregnancy; Z91.81 History of falling

== ENCOUNTER → 2017-08-29 | Outpatient (CLI) | payer OTHER ==
[~2017-08-29] MED LIST changes: -METO-157 PO; -ONDA4TAB46 PO; -PRENTAB26 PO
[2017-08-29 16:50] LABS: BASO % 0.3 %; BASO ABS # 0.02 K/uL (0-0.2); EOS % 1.7 %; HEMATOCRIT 38.7 % (37-47); HEMOGLOBIN 12.8 g/dL (12.0-16.0); IG# 0.02 K/uL (0.00-0.02); LYMPH % 39.6 %; LYMPH ABS # 2.33 K/uL (1.2-3.4); MEAN CELL VOLUME 83.9 fL (80-100); MEAN CORPUSCULAR HEMOGLOBIN 27.8 pg (25-34); MEAN CORPUSCULAR HGB CONC 33.1 g/dl (32-36); MONO % 5.1 %; NEUT ABS # 3.11 K/uL (1.4-6.5); PLATELET COUNT 164 K/uL (130-400); RED CELL DISTRIBUTION WIDTH CV 13.2 % (11.5-14.5); RED CELL DISTRIBUTION WIDTH SD 39.9 fL (36.4-46.3); WHITE BLOOD COUNT 5.88 K/uL (4.8-10.8)
== END | disposition home or self-care (01) ==
LOC: C.LABBFT 13:37
PROVIDERS: ATTEND Internal Medicine Hematology & Oncology
DX: D69.3 Immune thrombocytopenic purpura (principal)